=== PATIENT | male | born 1950 | race Caucasian/White ===

== ENCOUNTER → 2020-07-10 | Outpatient (CLI) | payer OTHER ==
[2020-07-10 11:10] LABS: ALBUMIN 3.7 g/dL (3.5-5.0); BILIRUBIN,TOTAL 0.6 mg/dL (0.2-1.0); CREATININE 1.3 mg/dL (0.5-1.5); PHOSPHORUS 3.2 mg/dL (2.5-4.9); THYROID STIMULATING HORMONE 1.83 uIU/mL (0.36-3.74)
== END | disposition home or self-care (01) ==
LOC: LAB 08:06
PROVIDERS: ATTEND Internal Medicine Nephrology
DX: I12.9 Hypertensive chronic kidney disease with stage 1 through stage 4 chronic kidney disease, or unspecified chronic kidney disease (principal); E27.9 Disorder of adrenal gland, unspecified; E78.5 Hyperlipidemia, unspecified; N18.9 Chronic kidney disease, unspecified
CPT/HCPCS: 36415; 80053; 82088; 82172; 82247; 82977; 83010; 83883; 83970; 84100; 84244; 84443; 84460; 86038; 86160; 86215; 86235; 86255; 86334